=== PATIENT | male | born 1980 ===

== ENCOUNTER 2021-05-12 21:09 | Emergency (ER) | payer SELFPAY ==
[~2021-05-12] VITALS: Ht 175.3 cm; Wt 109.1 kg
[2021-05-12 21:20] VITALS: BP 148/92
== END 2021-05-12 23:11 | disposition left against medical advice (07) ==
LOC: EMS 21:12
DX: R10.9 Unspecified abdominal pain (principal); R07.9 Chest pain, unspecified; Z53.21 Procedure and treatment not carried out due to patient leaving prior to being seen by health care provider